=== PATIENT | male | born 1960 | race Two or more races ===

== ENCOUNTER 2022-07-22 04:33 | Inpatient (IN) | payer MEDICAID, OTHER ==
[~2022-07-22] VITALS: Ht 167.6 cm; Wt 83.1 kg
[2022-07-22 05:04] LABS: Basophils # (auto) 0.1 10 ^3/uL (0-0.2); Eosinophils # (auto) 0.1 10 ^3/uL (0-0.8); Eosinophils % (auto) 1.7 % (0.0-7.0); Hematocrit 42.3 % (41.0-53.0); Hemoglobin 14.4 g/dL (13.5-17.5); Lymphocytes # (auto) 1.6 10 ^3/uL (0.4-5.4); Lymphocytes % (auto) 20.1 % (10.0-50.0); Mean Corpuscular Hemoglobin 32.2 pg (28.0-32.0); Mean Corpuscular Volume 94.7 fL (80.0-100.0); Monocytes % (auto) 12.2 % (0.0-12.0); Neutrophils # (auto) 5.2 10 ^3/uL (1.6-8.6); Red Blood Cells 4.47 10^6/uL (4.5-5.90)
[2022-07-22 05:26] LABS: Alanine Aminotransferase 145 U/L (16-61); Albumin 3.1 g/dL (3.4-5.0); Anion Gap 9 (5-15); BUN/Creatinine Ratio 12.9; Blood Alcohol < 3.0 mg/dL (0-5); Blood Urea Nitrogen 11 mg/dL (7-18); Calcium 8.6 mg/dL (8.5-10.1); Carbon Dioxide 27 mmol/L (21-32); Chloride 103 mmol/L (98-107); GFR African American 117 mL/min; GFR Non-African American 97 mL/min; Glucose 276 mg/dL (74-106); Lipase 172 U/L (73-393); Potassium 3.9 mmol/L (3.5-5.1); Sodium 139 mmol/L (136-145)
[2022-07-22 05:29] LABS: Alkaline Phosphatase 163 U/L (45-117); Aspartate Aminotransferase 95 U/L (15-37); Bilirubin, Total 0.7 mg/dL (0.2-1.0)
[2022-07-22] MEDS ORDERED: SODIUM CHLORIDE 0.9% 1,000 ML IV ONE (07:15)
[2022-07-22] MEDS ORDERED: SPIRONOLACTONE 25 MG TAB PO ONE (07:15)
[2022-07-22] MEDS ORDERED: FUROSEMIDE 40 MG/4 ML VIAL IV ONE (07:15)
[2022-07-22 10:27] LABS: Urine Bacteria FEW /hpf (None Seen); Urine Blood Negative /uL (Negative); Urine Mucus FEW (None Seen); Urine Specific Gravity 1.019 (1.001-1.035); Urine WBC 42 /hpf (0 - 3)
[2022-07-22 10:44] LABS: Alcohol, Urine < 3.0 mg/dL (0-10); Amphetamine Screen, Urine POSITIVE (NEGATIVE); Barbiturate Scree,Urine NEGATIVE (NEGATIVE); Benzodiazephine Screen, Urine NEGATIVE (NEGATIVE); Cannabinoid Screen, Urine NEGATIVE (NEGATIVE); Cocaine Screen, Urine NEGATIVE (NEGATIVE); Opiate Scree,Urine NEGATIVE (NEGATIVE); Phencyclidine Screen, Urine NEGATIVE (NEGATIVE)
[2022-07-22] MEDS ORDERED: NITROGLYCERIN 0.4 MG SL TAB SL PRN (11:30)
[2022-07-22] MEDS ORDERED: MORPHINE SULFATE INJ 2 MG/ml SYRG IV PRN (11:30)
[2022-07-22] MEDS ORDERED: hydrALAZINE HCL 20 MG/ML VL IV PRN (12:15)
[2022-07-22] MEDS ORDERED: cefTRIAXone 1GM/50ML D5W 50 ML IV ONE (12:15)
[2022-07-22] MEDS ORDERED: DEXTROSE (50%) 50ML SYRG IV PRN (12:30)
[2022-07-22 13:10] LABS: Cholesterol 114 mg/dL (< 200); HDL Cholesterol 30 mg/dL (40-59); LDL Cholesterol 80 mg/dL (< 100); Triglycerides 46 mg/dL (< 150)
[2022-07-22 13:13] LABS: INR 1.15 (0.9-1.15)
[2022-07-22] MEDS ORDERED: MAGNESIUM SULFATE 1GM/100ML 100 ML IV ONE (14:30)
[2022-07-22] MEDS: ACCU-CHEK COMFORT CURVE STRIP VI SCH ×2 (17:28→23:26)
[2022-07-22] MEDS: InsuLIN REG 1unit/0.01ml Soln (100units/ml) SC SCH ×2 (17:35→23:22)
[2022-07-22] MEDS ORDERED: FUR20T PO (20:30)
[2022-07-22] MEDS ORDERED: METF-372 PO (20:30)
[2022-07-22] MEDS ORDERED: SERT50TA19 PO (20:30)
[2022-07-22] MEDS ORDERED: ALOG1TAB2 PO (20:30)
[2022-07-22] MEDS: INSULIN LANTUS (GLARGINE) 1 /0.01ml (100units/ml) SC SCH (23:23)
[2022-07-22] MEDS: SACUBITRIL-VALSARTAN 24mg/26mg TAB PO SCH (23:26)
[2022-07-22] MEDS: CARVEDILOL 3.125 MG TAB PO SCH (23:27)
[2022-07-23] MEDS ORDERED: LORA-483 GT (01:00)
[2022-07-23 01:01] VITALS: BP 130/84
[2022-07-23 05:00] VITALS: BP 139/88
[2022-07-23 05:37] LABS: Basophils # (auto) 0 10 ^3/uL (0-0.2); Basophils % (auto) 0.5 % (0.0-2.0); Eosinophils # (auto) 0.1 10 ^3/uL (0-0.8); Eosinophils % (auto) 0.7 % (0.0-7.0); Hematocrit 44.1 % (41.0-53.0); Hemoglobin 14.9 g/dL (13.5-17.5); Lymphocytes # (auto) 1.2 10 ^3/uL (0.4-5.4); Lymphocytes % (auto) 13.3 % (10.0-50.0); Mean Corpuscular Hemoglobin 32.1 pg (28.0-32.0); Mean Corpuscular Hgb Conc. 33.8 g/dL (32.0-36.0); Mean Corpuscular Volume 95.1 fL (80.0-100.0); Monocytes # (auto) 0.9 10 ^3/uL (0-1.3); Monocytes % (auto) 9.8 % (0.0-12.0); Neutrophils % (auto) 75.7 % (37.0-80.0); Nucleated Red Blood Cells % 0.1 %; Red Blood Cells 4.63 10^6/uL (4.5-5.90); Red Cell Distribution Width 12.8 % (11.8-14.3); White Blood Cell 9.3 10^3/uL (4.4-10.8)
[2022-07-23 05:47] LABS: Albumin 3.1 g/dL (3.4-5.0); Calcium 9.2 mg/dL (8.5-10.1)
[2022-07-23 06:01] LABS: BUN/Creatinine Ratio 13.8; Total Protein 7.7 g/dL (6.4-8.2)
[2022-07-23] MEDS: ACCU-CHEK COMFORT CURVE STRIP VI SCH ×4 (06:06→21:54)
[2022-07-23] MEDS: InsuLIN REG 1unit/0.01ml Soln (100units/ml) SC SCH ×4 (06:07→21:55)
[2022-07-23 09:19] VITALS: BP 139/89
[2022-07-23] MEDS ORDERED: FUROSEMIDE 20 MG/2 ML VIAL IV SCH (10:00)
[2022-07-23] MEDS: cefTRIAXone 1GM/50ML D5W 50 ML IV SCH (10:14)
[2022-07-23] MEDS: SACUBITRIL-VALSARTAN 24mg/26mg TAB PO SCH ×2 (10:17→21:53)
[2022-07-23] MEDS: POTASSIUM CHL 10 Meq TABLET PO SCH (10:18)
[2022-07-23] MEDS: DAPAGLIFLOZIN 5 MG TAB PO SCH (10:18)
[2022-07-23] MEDS: ASPirin 81 mg TAB PO SCH (10:19)
[2022-07-23] MEDS: CARVEDILOL 3.125 MG TAB PO SCH ×2 (10:20→21:53)
[2022-07-23] MEDS: ENOXAPARIN SOD 40 MG/0.4 ML SYRINGE SC SCH (10:20)
[2022-07-23 12:53] VITALS: BP 132/85
[2022-07-23] MEDS: MILRINONE 20MG/100ML 100 ML IV SCH (17:07)
[2022-07-23 17:31] VITALS: BP 118/76
[2022-07-23] MEDS: FUROSEMIDE 20 MG/2 ML VIAL IV SCH ×2 (18:26→21:52)
[2022-07-23] MEDS: INSULIN LANTUS (GLARGINE) 1 /0.01ml (100units/ml) SC SCH (21:54)
[2022-07-23 22:00] VITALS: BP 111/77
[2022-07-24] MEDS: MILRINONE 20MG/100ML 100 ML IV SCH ×3 (00:45→21:40)
[2022-07-24 05:00] VITALS: BP 105/62
[2022-07-24] MEDS: ACCU-CHEK COMFORT CURVE STRIP VI SCH ×4 (05:56→23:14)
[2022-07-24] MEDS: InsuLIN REG 1unit/0.01ml Soln (100units/ml) SC SCH ×4 (05:59→23:14)
[2022-07-24 06:34] LABS: Albumin 3.3 g/dL (3.4-5.0)
[2022-07-24 06:39] LABS: Bilirubin, Direct 0.4 mg/dL (0-0.2); Bilirubin, Total 1.2 mg/dL (0.2-1.0); Total Protein 7.4 g/dL (6.4-8.2)
[2022-07-24] MEDS: cefTRIAXone 1GM/50ML D5W 50 ML IV SCH (09:18)
[2022-07-24] MEDS: ENOXAPARIN SOD 40 MG/0.4 ML SYRINGE SC SCH (09:18)
[2022-07-24 09:19] LABS: Hepatitis B Surface Antibody Negative (Negative)
[2022-07-24] MEDS: DAPAGLIFLOZIN 5 MG TAB PO SCH (09:19)
[2022-07-24] MEDS: SACUBITRIL-VALSARTAN 24mg/26mg TAB PO SCH ×2 (09:19→21:47)
[2022-07-24] MEDS: FUROSEMIDE 20 MG/2 ML VIAL IV SCH ×2 (09:19→21:44)
[2022-07-24] MEDS: POTASSIUM CHL 10 Meq TABLET PO SCH (09:20)
[2022-07-24] MEDS: CARVEDILOL 3.125 MG TAB PO SCH ×2 (09:20→21:44)
[2022-07-24 09:30] VITALS: BP 101/64
[2022-07-24] MEDS: ASPirin 81 mg TAB PO SCH (09:31)
[2022-07-24 09:36] LABS: Hepatitis A Total Antibody Positive (Negative)
[2022-07-24 12:30] VITALS: BP 116/60
[2022-07-24 12:34] LABS: Hepatitis A Ab IgM Negative; Hepatitis B Core IgM Negative
[2022-07-24 12:35] LABS: Hepatitis C Antibody Negative (Negative)
[2022-07-24 12:49] LABS: Hepatitis C Antibody Negative (Negative)
[2022-07-24 16:46] VITALS: BP 109/66
[2022-07-24 22:00] VITALS: BP 83/45
[2022-07-24] MEDS: INSULIN LANTUS (GLARGINE) 1 /0.01ml (100units/ml) SC SCH (23:14)
[2022-07-25 05:00] VITALS: BP 98/62
[2022-07-25] MEDS: ACCU-CHEK COMFORT CURVE STRIP VI SCH ×4 (06:26→21:47)
[2022-07-25] MEDS: InsuLIN REG 1unit/0.01ml Soln (100units/ml) SC SCH ×4 (06:26→21:53)
[2022-07-25] MEDS: MILRINONE 20MG/100ML 100 ML IV SCH (06:27)
[2022-07-25 06:29] LABS: Albumin 2.9 g/dL (3.4-5.0); Calcium 8.9 mg/dL (8.5-10.1); Potassium 4.2 mmol/L (3.5-5.1)
[2022-07-25 06:32] LABS: BUN/Creatinine Ratio 32.6; Bilirubin, Direct 0.3 mg/dL (0-0.2); Bilirubin, Total 0.9 mg/dL (0.2-1.0); Total Protein 6.8 g/dL (6.4-8.2)
[2022-07-25 06:47] LABS: Basophils # (auto) 0.1 10 ^3/uL (0-0.2); Basophils % (auto) 0.8 % (0.0-2.0); Eosinophils # (auto) 0.1 10 ^3/uL (0-0.8); Eosinophils % (auto) 0.8 % (0.0-7.0); Hematocrit 48.2 % (41.0-53.0); Hemoglobin 16.6 g/dL (13.5-17.5); Lymphocytes # (auto) 2.1 10 ^3/uL (0.4-5.4); Lymphocytes % (auto) 27.2 % (10.0-50.0); Mean Corpuscular Hgb Conc. 34.4 g/dL (32.0-36.0); Mean Corpuscular Volume 93.1 fL (80.0-100.0); Monocytes # (auto) 1.1 10 ^3/uL (0-1.3); Monocytes % (auto) 14.2 % (0.0-12.0); Neutrophils # (auto) 4.4 10 ^3/uL (1.6-8.6); Nucleated Red Blood Cells % 0.2 %; Red Blood Cells 5.18 10^6/uL (4.5-5.90); Red Cell Distribution Width 12.8 % (11.8-14.3); White Blood Cell 7.6 10^3/uL (4.4-10.8)
[2022-07-25 09:16] VITALS: BP 99/50
[2022-07-25] MEDS: cefTRIAXone 1GM/50ML D5W 50 ML IV SCH (09:32)
[2022-07-25] MEDS: ENOXAPARIN SOD 40 MG/0.4 ML SYRINGE SC SCH (09:32)
[2022-07-25] MEDS: ASPirin 81 mg TAB PO SCH (09:32)
[2022-07-25] MEDS: POTASSIUM CHL 10 Meq TABLET PO SCH (09:32)
[2022-07-25] MEDS: CARVEDILOL 3.125 MG TAB PO SCH ×2 (09:34→21:46)
[2022-07-25] MEDS: DAPAGLIFLOZIN 5 MG TAB PO SCH (09:41)
[2022-07-25] MEDS ORDERED: SACUBITRIL-VALSARTAN 24mg/26mg TAB PO SCH (10:00)
[2022-07-25] MEDS ORDERED: FUROSEMIDE 40 MG/4 ML VIAL IV SCH (10:00)
[2022-07-25 12:30] VITALS: BP 95/59
[2022-07-25 17:18] VITALS: BP 83/47
[2022-07-25] MEDS: SACUBITRIL-VALSARTAN 24mg/26mg TAB PO SCH (21:47)
[2022-07-25] MEDS: INSULIN LANTUS (GLARGINE) 1 /0.01ml (100units/ml) SC SCH (21:52)
[2022-07-25 22:00] VITALS: BP 106/57
[2022-07-25] MEDS ORDERED: APIXABAN 5 MG TAB PO SCH (22:00)
[2022-07-26] VITALS (8 sets, daily range): BP systolic 99–123; BP diastolic 58–89
[2022-07-26] MEDS: ATORVASTATIN 20 MG TAB PO SCH ×2 (01:21→22:36)
[2022-07-26 04:46] LABS: Basophils # (auto) 0 10 ^3/uL (0-0.2); Basophils % (auto) 0.6 % (0.0-2.0); Eosinophils # (auto) 0.1 10 ^3/uL (0-0.8); Eosinophils % (auto) 0.7 % (0.0-7.0); Hematocrit 49.9 % (41.0-53.0); Hemoglobin 16.9 g/dL (13.5-17.5); Lymphocytes # (auto) 1.7 10 ^3/uL (0.4-5.4); Lymphocytes % (auto) 20.9 % (10.0-50.0); Mean Corpuscular Hemoglobin 31.9 pg (28.0-32.0); Mean Corpuscular Hgb Conc. 33.9 g/dL (32.0-36.0); Mean Corpuscular Volume 94.1 fL (80.0-100.0); Monocytes # (auto) 1.1 10 ^3/uL (0-1.3); Monocytes % (auto) 13.8 % (0.0-12.0); Neutrophils # (auto) 5.1 10 ^3/uL (1.6-8.6); Nucleated Red Blood Cells % 0.2 %; Red Blood Cells 5.31 10^6/uL (4.5-5.90)
[2022-07-26 05:03] LABS: Albumin 3.1 g/dL (3.4-5.0)
[2022-07-26 05:07] LABS: Bilirubin, Direct 0.2 mg/dL (0-0.2); Bilirubin, Total 0.7 mg/dL (0.2-1.0); Total Protein 7.2 g/dL (6.4-8.2)
[2022-07-26 05:32] LABS: INR 1.18 (0.9-1.15); Partial Thromboplastin Time 30.2 sec (24.6-33.4)
[2022-07-26] MEDS: ACCU-CHEK COMFORT CURVE STRIP VI SCH ×4 (05:51→22:00)
[2022-07-26] MEDS: InsuLIN REG 1unit/0.01ml Soln (100units/ml) SC SCH ×4 (06:13→22:35)
[2022-07-26 06:51] LABS: Urine Bacteria NONE SEEN /hpf (None Seen); Urine Blood Negative /uL (Negative); Urine Specific Gravity 1.006 (1.001-1.035); Urine WBC <1 /hpf (0 - 3)
[2022-07-26] MEDS: cefTRIAXone 1GM/50ML D5W 50 ML IV SCH (09:50)
[2022-07-26] MEDS: FUROSEMIDE 20 MG/2 ML VIAL IV SCH (10:00)
[2022-07-26] MEDS: ENOXAPARIN SOD 100 MG/1 ML SYRINGE SC SCH ×2 (10:00→22:37)
[2022-07-26] MEDS: DAPAGLIFLOZIN 5 MG TAB PO SCH (10:00)
[2022-07-26] MEDS: SACUBITRIL-VALSARTAN 24mg/26mg TAB PO SCH ×2 (10:00→22:00)
[2022-07-26] MEDS: POTASSIUM CHL 10 Meq TABLET PO SCH (10:00)
[2022-07-26] MEDS: CARVEDILOL 3.125 MG TAB PO SCH ×2 (10:00→22:00)
[2022-07-26] MEDS ORDERED: MIDAZOLAM HCL 2MG/2ML 2ml VIAL (1mg/ml) IV ONE (10:15)
[2022-07-26] MEDS ORDERED: LIDOCAINE VISCOUS 2% 15ML UD MT ONE (10:15)
[2022-07-26] MEDS ORDERED: fentaNYL CITRATE 100 MCG/2 ML VL IV ONE (10:15)
[2022-07-26] MEDS ORDERED: diphenhdrAMINE HCL 50 MG/1 ML VL IV ONE (10:15)
[2022-07-26] MEDS ORDERED: LORazepam 2MG/ML-1ML VIAL IV PRN (21:00)
[2022-07-26] MEDS: INSULIN LANTUS (GLARGINE) 1 /0.01ml (100units/ml) SC SCH (22:36)
[2022-07-27 05:48] VITALS: BP 107/67
[2022-07-27] MEDS: ACCU-CHEK COMFORT CURVE STRIP VI SCH ×3 (06:43→17:00)
[2022-07-27] MEDS: InsuLIN REG 1unit/0.01ml Soln (100units/ml) SC SCH ×3 (06:44→17:00)
[2022-07-27 08:00] VITALS: BP 106/58
[2022-07-27] MEDS: cefTRIAXone 1GM/50ML D5W 50 ML IV SCH (09:52)
[2022-07-27] MEDS: DAPAGLIFLOZIN 5 MG TAB PO SCH (09:53)
[2022-07-27] MEDS: POTASSIUM CHL 10 Meq TABLET PO SCH (09:54)
[2022-07-27] MEDS: ENOXAPARIN SOD 100 MG/1 ML SYRINGE SC SCH (09:54)
[2022-07-27] MEDS: SACUBITRIL-VALSARTAN 24mg/26mg TAB PO SCH ×2 (09:55→10:00)
[2022-07-27] MEDS: FUROSEMIDE 20 MG/2 ML VIAL IV SCH (10:00)
[2022-07-27] MEDS: CARVEDILOL 3.125 MG TAB PO SCH (10:00)
[2022-07-27] MEDS ORDERED: CAR3125T PO (10:52)
[2022-07-27] MEDS ORDERED: ATOR20TA50 PO (10:52)
[2022-07-27] MEDS ORDERED: DAPA1TAB4 PO (10:52)
[2022-07-27] MEDS ORDERED: SACU1TAB PO (10:52)
[2022-07-27] MEDS ORDERED: APIX5TAB PO (10:53)
[2022-07-27 11:40] VITALS: BP 100/73
[2022-07-27 12:00] VITALS: BP 106/72
[2022-07-27 16:00] VITALS: BP 126/87
== END 2022-07-27 16:45 | disposition home health service (06) | DRG 45 ==
LOC: ER 04:33 → EDBD 04:33 → TELE 11:32 → TELE-EAST 20:57
PROVIDERS: ADMIT Registered Nurse; ATTEND Internal Medicine
PROC: B24BZZ4 Ultrasonography of Heart with Aorta, Transesophageal (ICD-10-PCS; principal; 2022-07-26)
DX: I63.542 Cerebral infarction due to unspecified occlusion or stenosis of left cerebellar artery (principal); I50.23 Acute on chronic systolic (congestive) heart failure; E44.1 Mild protein-calorie malnutrition; J91.8 Pleural effusion in other conditions classified elsewhere; I42.7 Cardiomyopathy due to drug and external agent; G81.91 Hemiplegia, unspecified affecting right dominant side; I11.0 Hypertensive heart disease with heart failure; E66.01 Morbid (severe) obesity due to excess calories; N39.0 Urinary tract infection, site not specified; F15.10 Other stimulant abuse, uncomplicated; E11.65 Type 2 diabetes mellitus with hyperglycemia; Z20.822 Contact with and (suspected) exposure to COVID-19; K21.9 Gastro-esophageal reflux disease without esophagitis; R47.1 Dysarthria and anarthria; Z79.899 Other long term (current) drug therapy; Z79.84 Long term (current) use of oral hypoglycemic drugs; Z68.29 Body mass index [BMI] 29.0-29.9, adult
CPT/HCPCS: 36415; 70450; 70551; 71045; 76604; 76705; 80053; 80061; 80074; 80076; 80307; 80320; 81001; 82962; 83036; 83690; 83735; 83880; 84443; 84484; 85025; 85610; 85730; 86704; 86706; 86708; 86803; 86850; 86900; 86901; 87086; 87088; 87186; 87340; 87426; 93005; 93306; 93312; 93886; 96361; 96365; 96375; 97163; 99152; G0378; J0696; J1815; J2250